=== PATIENT | female | born 1985 | race Caucasian/White ===

== ENCOUNTER 2022-12-24 04:36 | Emergency (ER) | payer SELFPAY ==
[~2022-12-24] VITALS: Ht 172.7 cm; Wt 47.0 kg
[2022-12-24] MEDS ORDERED: TETRACAINE 0.5% OPHTH DROPS 4ML LEFTEYE ONE (05:30)
[2022-12-24 07:46] VITALS: BP 138/92
== END 2022-12-24 08:06 | disposition left against medical advice (07) ==
LOC: ER 04:36
DX: R51.9 Headache, unspecified (principal); H53.8 Other visual disturbances
CPT/HCPCS: 99283